=== PATIENT | female | born 2000 | race Caucasian/White ===

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

== ENCOUNTER 2024-08-25 09:00 | Outpatient (CLI) | payer BC | END 2024-08-25 13:00 | disposition home or self-care (01) | LOC: BICMRI 09:00 | PROVIDERS: ATTEND Internal Medicine | DX: G43.909 Migraine, unspecified, not intractable, without status migrainosus (principal); J34.89 Other specified disorders of nose and nasal sinuses | CPT/HCPCS: 70551 ==